=== PATIENT | male | born 1975 | race Caucasian/White ===

== ENCOUNTER 2019-12-08 13:30 | Emergency (ER) | payer BC ==
[2019-12-08] MEDS ORDERED: Sodium Chloride 0.9% 10 ML Syringe FLUSH PRN (13:43)
[2019-12-08] MEDS ORDERED: Sodium Chloride 0.9% 1,000 ML IV ONE ×3 (13:43→14:31)
--- NOTE | 2019-12-08 13:51 | EDM.PDOC ---
ED HPI GENERAL MEDICAL PROBLEM - General Chief Complaint: General Stated Complaint: shortness of breath Time Seen by Provider: 12/08/19 13:45 Source of Information: Reports: Patient History Limitations: Reports: No Limitations - History of Present Illness INITIAL COMMENTS - FREE TEXT/NARRATIVE: 43 YO WM with PMH of NIDDM, HTN and obesity who presents to ER from clinic with fever, and shortness of breath which began 4 days ago. Pt was seen in clinic on Sunday and diagnosed with a viral URI and sent home on Ibuprofen. Pt states he was doing okay until this am when he woke with worsening shortness of breath prompting another clinic visit. Upon clinic assessment, pt was found to be hypotensive (systolic BP 80's) with SaO2 88% and tachypnea prompting instructions to go to ER for evaluation. Pt reports fever as high as 103 at home. Pt denies any chest pain, or nausea/vomiting at this time. Pt reports he is feeling better with O2 nasal canula. Onset Date: 12/05/19 Duration: Day(s): (4) Location: Reports: Generalized Severity: Severe Improves with: Reports: Rest Worsens with: Reports: Breathing, Movement Associated Symptoms: Reports: Cough, Diaphoresis, Fever/Chills, Loss of Appetite , Malaise, Shortness of Breath, Weakness. Denies: Chest Pain, Nausea/Vomiting Treatments VAMP MARKER: Reports: Acetaminophen - Related Data Allergies Allergy/AdvReac Type Severity Reaction Status Date / Time No Known Drug Allergies Allergy Other Verified 12/08/19 13:37 Ulcnhua-Ycb-Lnd Reductase Allergy Other Verified 12/08/19 14:21 Inhibitor environmental Allergens Allergy Other Uncoded 12/08/19 14:20 food Allergy Other Uncoded 12/08/19 14:21 Home Meds: Home Meds Acetaminophen 1,000 mg PO Q6H PRN 12/08/19 [History] Fenofibrate 160 mg PO DAILY 12/08/19 [History] Furosemide [Lasix] 40 mg PO DAILY 12/08/19 [History] Lisinopril [Zestril] 5 mg PO DAILY 12/08/19 [History] Naproxen [Naprosyn] 500 mg PO Q12H PRN 12/08/19 [History] allopurinoL [Zyloprim] 300 mg PO DAILY 12/08/19 [History] glipiZIDE [Glucotrol] 20 mg PO ACBREAKFAST 12/08/19 [History] metFORMIN [Glucophage] 1,000 mg PO BIDMEALS 12/08/19 [History] ED ROS GENERAL - Review of Systems Review Of Systems: See Below Constitutional: Reports: Fever, Chills, Malaise, Weakness, Diaphoresis, Decreased Appetite HEENT: Reports: Rhinitis Respiratory: Reports: Shortness of Breath Cardiovascular: Reports: Dyspnea on Exertion Endocrine: Reports: No Symptoms GI/Abdominal: Reports: No Symptoms : Reports: No Symptoms Musculoskeletal: Reports: No Symptoms Skin: Reports: No Symptoms Neurological: Reports: No Symptoms Psychiatric: Reports: No Symptoms Hematologic/Lymphatic: Reports: No Symptoms Immunologic: Reports: No Symptoms ED EXAM, GENERAL - Physical Exam Exam: See Below Exam Limited By: No Limitations General Appearance: Alert, WD/WN, No Apparent Distress Eye Exam: Bilateral Eye: PERRL Ears: Normal External Exam, Normal Canal, Hearing Grossly Normal, Normal TMs Ear Exam: Bilateral Ear: Auricle Normal, Canal Normal, TM normal Nose: Normal Inspection, Normal Mucosa, No Blood Throat/Mouth: Normal Inspection, Normal Lips, Normal Teeth, Normal Gums, Normal Oropharynx, Normal Voice, No Airway Compromise Head: Atraumatic, Normocephalic Neck: Normal Inspection, Supple, Non-Tender, Full Range of Motion Respiratory/Chest: Lungs Clear, Normal Breath Sounds, Chest Non-Tender, Accessory Muscle Use Cardiovascular: Normal Peripheral Pulses, Regular Rate, Rhythm, No Edema, No Gallop, No JVD, No Murmur, No Rub, Tachycardia GI/Abdominal: Normal Bowel Sounds, Soft, Non-Tender, No Organomegaly, No Distention, No Abnormal Bruit, No Mass Back Exam: Normal Inspection, Full Range of Motion, NT Extremities: Normal Inspection, Normal Range of Motion, Non-Tender, Normal Capillary Refill, No Pedal Edema Neurological: Alert, Oriented, CN II-XII Intact, Normal Cognition, Normal Gait, Normal Reflexes, No Motor/Sensory Deficits Psychiatric: Normal Affect, Normal Mood Skin Exam: Warm, Dry, Intact, Normal Color, No Rash Lymphatic: No Adenopathy EKG INTERPRETATION EKG Date: 12/08/19 Time: 13:55 Rhythm: NSR Rate (Beats/Min): 137 Edwards: Normal P-Wave: Present QRS: Normal ST-T: Normal QT: Normal Comparison: NA - No Prior EKG Course - Vital Signs Last Recorded V/S: Last Vital Signs Temp 36.8 C 12/08/19 14:48 Pulse 140 H 12/08/19 14:48 Resp 32 H 12/08/19 14:48 BP 103/77 12/08/19 14:48 Pulse Ox 94 L 12/08/19 14:48 - Orders/Labs/Meds Orders: Active Orders 24 hr Category Date Time Status Cardiac Monitoring [RC] . DIRECTED Care 12/08/19 13:43 Active EKG Documentation Completion [RC] ASDIRECTED Care 12/08/19 13:43 Active Peripheral IV Care [RC] . DIRECTED Care 12/08/19 13:43 Active CULTURE BLOOD [BC] Stat Lab 12/08/19 13:44 Received CULTURE BLOOD [BC] Stat Lab 12/08/19 14:25 Received Piperacillin/Tazobactam [Zosyn] 4.5 gm Med 12/08/19 14:45 Active Sodium Chloride 0.9% [Normal Saline] 100 ml IV Q6H Sodium Chloride 0.9% [Normal Saline] 1,000 ml Med 12/08/19 14:31 Active IV .BOLUS Sodium Chloride 0.9% [Saline Flush] Med 12/08/19 13:43 Active 10 ml FLUSH Q8HR PRN Vancomycin 1 gm Med 12/08/19 14:43 Active Sodium Chloride 0.9% [Normal Saline] 250 ml IV ONETIME Blood Culture x2 Reflex Set [OM.PC] Stat Oth 12/08/19 13:53 Ordered Peripheral IV Insertion Adult [OM.PC] Routine Oth 12/08/19 13:43 Ordered EKG 12 Lead [EK] Routine Ther 12/08/19 13:43 Ordered Medication Orders Sodium Chloride (Normal Saline) 1,000 mls @ 999 mls/hr IV .BOLUS ONE Stop: 12/08/19 15:31 Piperacillin Sod/Tazobactam (Sod 4.5 gm/ Sodium Chloride) 100 mls @ 200 mls/hr IV Q6H ALMA ROSA Last Admin: 12/08/19 14:51 Dose: 200 mls/hr Vancomycin HCl 1 gm/ Sodium (Chloride) 250 mls @ 167 mls/hr IV ONETIME ONE Stop: 12/08/19 16:12 Sodium Chloride (Saline Flush) 10 ml FLUSH Q8HR PRN PRN Reason: keep vein open Labs: Laboratory Tests 12/08/19 12/08/19 12/08/19 Range/Units 13:44 13:44 13:44 WBC 19.64 H (5.00-10.00) 10^3/uL RBC 4.65 (4.50-6.00) 10^6/uL Hgb 14.2 (13.0-17.0) g/dL Hct 42.1 (40.0-52.0) % MCV 90.5 (82.0-92.0) fL MCH 30.5 (27.0-31.0) pg MCHC 33.7 (32.0-36.0) g/dL RDW 14.2 (11.5-14.5) % Plt Count 192 (150-400) 10^3/uL MPV 11.0 H (7.4-10.4) fL Add Manual Diff Yes Neutrophils % (Manual) 70 (50-70) % Band Neutrophils % 21 H (4-12) % Lymphocytes % (Manual) 5 L (20-40) % Monocytes % (Manual) 2 (2-8) % Eosinophils % (Manual) 1 (1-3) % Metamyelocytes % 1 Immature Gran # 0.1964 Absolute Neutrophils 17.8724 Lymphocytes # (Manual) 0.9820 Monocytes # (Manual) 0.3928 Eosinophils # (Manual) 0.1964 Sodium 134 L (136-145) mmol/L Potassium 4.5 (3.3-5.3) mmol/L Chloride 96 L (98-115) mmol/L Carbon Dioxide 19.0 L (21.0-32.0) mmol/L Anion Gap 23.5 H (5-15) mmol/L BUN 21 (6-25) mg/dL Creatinine 2.23 H (0.51-1.17) mg/dL Est Cr Clr Drug Dosing 38.15 mL/min Estimated GFR (MDRD) 32 mL/min Glucose 85 (75 - 99) mg/dL Lactic Acid 6.3 H (0.4-2.0) mmol/L Calcium 8.8 (8.7-10.3) mg/dL Total Bilirubin 1.6 H (0.2-1.0) mg/dL AST 63 H (15-37) U/L ALT 46 (12-78) U/L Alkaline Phosphatase 71 (46-116) IU/L Creatine Kinase 432 H* (26-276) U/L CK-MB (CK-2) 0.60 (0.00-4.30) ng/mL Troponin I < 0.04 (0.00-0.070) ng/mL Total Protein 7.0 (6.4-8.2) g/dL Albumin 2.86 L (3.00-4.80) g/dL Meds: Medications Generic Name Dose Route Start Last Admin Trade Name Freq PRN Reason Stop Dose Admin Sodium Chloride 1,000 mls @ 999 mls/hr 12/08/19 14:31 Normal Saline IV 12/08/19 15:31 .BOLUS ONE Piperacillin Sod/Tazobactam 100 mls @ 200 mls/hr 12/08/19 14:45 12/08/19 14: 51 Sod 4.5 gm/ Sodium Chloride IV 200 mls/hr Q6H ALMA ROSA Administration Vancomycin HCl 1 gm/ Sodium 250 mls @ 167 mls/hr 12/08/19 14:43 Chloride IV 12/08/19 16:12 ONETIME ONE Sodium Chloride 10 ml 12/08/19 13:43 Saline Flush FLUSH Q8HR PRN keep vein open Discontinued Medications Generic Name Dose Route Start Last Admin Trade Name Freq PRN Reason Stop Dose Admin Sodium Chloride 1,000 mls @ 999 mls/hr 12/08/19 13:43 12/08/19 13:50 Normal Saline IV 12/08/19 14:43 999 mls/hr .BOLUS ONE Administration Ibuprofen 800 mg 12/08/19 14:05 12/08/19 14:14 Motrin PO 12/08/19 14:06 800 mg ONETIME ONE Administration - Radiology Interpretation Free Text/Narrative:: CXR- bilateral hilar infiltrates with mild pulm edema Departure - Departure Time of Disposition: 14:58 Disposition: DC/Tfer to Acute Hospital 02 Condition: Serious Clinical Impression: Influenza A Pneumonia Qualifiers: Laterality: bilateral Lung location: upper lobe of lung Sepsis Qualifiers: Sepsis type: sepsis due to unspecified organism Sepsis acute organ dysfunction status: without acute organ dysfunction Qualified Code(s): A41.9 - Sepsis, unspecified organism - Discharge Information Referrals: PCP,Unknown [Ordering Only Provider] - Forms: ED Department Discharge, Interfacility Transfer [facility] Sepsis Event Note - Evaluation Sepsis Screening Result: Possible Sepsis Risk - Focused Exam Vital Signs: Vital Signs Temp Temp Temp Pulse Resp BP Pulse Ox 12/08/19 14:48 36.8 C 140 H 32 H 103/77 94 L 12/08/19 14:33 139 H 26 H 106/85 93 L 12/08/19 14:18 140 H 27 H 92/47 L 92 L 12/08/19 14:14 38.3 C H 12/08/19 13:52 130 H 28 H 103/38 L 91 L 12/08/19 13:40 143 H 33 H 96/46 L 90 L 12/08/19 13:30 36.9 C 144 H 26 H 101/50 L 89 L Date Exam was Performed: 12/08/19 Time Exam was Performed: 14:58 - My Orders Last 24 Hours: My Active Orders 12/08/19 13:43 Cardiac Monitoring [RC] . DIRECTED EKG Documentation Completion [RC] ASDIRECTED Peripheral IV Care [RC] . DIRECTED Sodium Chloride 0.9% [Saline Flush] 10 ml FLUSH Q8HR PRN Peripheral IV Insertion Adult [OM.PC] Routine EKG 12 Lead [EK] Routine 12/08/19 13:44 CULTURE BLOOD [BC] Stat 12/08/19 13:53 Blood Culture x2 Reflex Set [OM.PC] Stat 12/08/19 14:25 CULTURE BLOOD [BC] Stat 12/08/19 14:31 Sodium Chloride 0.9% [Normal Saline] 1,000 ml IV .BOLUS 12/08/19 14:43 Vancomycin 1 gm Sodium Chloride 0.9% [Normal Saline] 250 ml IV ONETIME 12/08/19 14:45 Piperacillin/Tazobactam [Zosyn] 4.5 gm Sodium Chloride 0.9% [Normal Saline] 100 ml IV Q6H - Assessment/Plan Last 24 Hours: My Active Orders 12/08/19 13:43 Cardiac Monitoring [RC] . DIRECTED EKG Documentation Completion [RC] ASDIRECTED Peripheral IV Care [RC] . DIRECTED Sodium Chloride 0.9% [Saline Flush] 10 ml FLUSH Q8HR PRN Peripheral IV Insertion Adult [OM.PC] Routine EKG 12 Lead [EK] Routine 12/08/19 13:44 CULTURE BLOOD [BC] Stat 12/08/19 13:53 Blood Culture x2 Reflex Set [OM.PC] Stat 12/08/19 14:25 CULTURE BLOOD [BC] Stat 12/08/19 14:31 Sodium Chloride 0.9% [Normal Saline] 1,000 ml IV .BOLUS 12/08/19 14:43 Vancomycin 1 gm Sodium Chloride 0.9% [Normal Saline] 250 ml IV ONETIME 12/08/19 14:45 Piperacillin/Tazobactam [Zosyn] 4.5 gm Sodium Chloride 0.9% [Normal Saline] 100 ml IV Q6H Assessment:: 1. Influenza A 2. Sepsis secondary to influenza A 3. bilateral hilar infiltrates suspect pneumonia Plan: 1. Transfer to [facility]- 2. Zosyn 4.5g IV now 3. NS boluses at 30ml/kg 4. blood culture drawn x 2 5. supplemental O2 at 2L and titrate as needed
[2019-12-08] MEDS ORDERED: Ibuprofen 400 MG Tab PO ONE (14:05)
[2019-12-08 14:22] LABS: ANION GAP 23.5 mmol/L (5-15); CHLORIDE,CL 96 mmol/L (98-115); SODIUM,NA 134 mmol/L (136-145)
--- NOTE | 2019-12-08 14:23 | CR ---
[id number] RAD/RAD Chest PA And Lateral EXAM: RAD Chest PA And Lateral CLINICAL DATA: CHEST PAIN COMPARISON: No previous similar exam is available. FINDINGS: There is abnormal hilar fullness There appears to mild edema The cardiac silhouette is enlarged There is scoliosis IMPRESSION: ABNORMAL EXAM CONSIDER CT CHEST AT SOME TIME HILAR FULLNESS, EITHER ADENOPATHY OR PULMONARY HYPERTENSION APPEARANCE OF MILD EDEMA Juaquin Mead MD 12/08/19 [id number] Thank you for allowing us to participate in the care of your patient.
[2019-12-08] MEDS ORDERED: Piperacillin/Tazobactam 4.5 GM in Sodium Chloride 0.9% 100 ML IV SCH (14:45)
== END 2019-12-08 15:35 ==
LOC: KA.ED 13:30
DX: A41.9 Sepsis, unspecified organism (principal); J10.00 Influenza due to other identified influenza virus with unspecified type of pneumonia; E11.9 Type 2 diabetes mellitus without complications; I10 Essential (primary) hypertension; E66.9 Obesity, unspecified; Z79.84 Long term (current) use of oral hypoglycemic drugs; Z91.018 Allergy to other foods; Z79.899 Other long term (current) drug therapy; Z68.43 Body mass index [BMI] 50.0-59.9, adult
CPT/HCPCS: 71046; 80053; 82550; 82553; 83605; 84484; 85025; 87040; 87804; 93005; 96361; 96365; 96368; 99285-25; A9270-GY; J2543; J3370; J7030; J7050

== ENCOUNTER 2020-09-01 06:50 | Day surgery (SDC) | payer BC ==
[2020-09-01] MEDS ORDERED: Propofol 200 MG/20 ML SDV IV ONE (06:51)
[2020-09-01] MEDS ORDERED: Midazolam 1 MG/ML 2 ML SDV IV ONE (06:51)
[2020-09-01] MEDS ORDERED: ceFAZolin 1 GM Vial IV ONE (06:51)
[2020-09-01] MEDS ORDERED: Sodium Chloride 0.9% 1,000 ML IV SCH (07:00)
[2020-09-01] MEDS ORDERED: Sodium Chloride 0.9% 10 ML Syringe FLUSH PRN (07:00)
[2020-09-01] MEDS ORDERED: ceFAZolin 1 GM Vial ONE (07:53)
[2020-09-01] MEDS ORDERED: Midazolam 1 MG/ML 2 ML SDV ONE (07:53)
[2020-09-01] MEDS ORDERED: Lidocaine 0.5% 50 ML SDV ONE (07:54)
[2020-09-01] MEDS ORDERED: Propofol 200 MG/20 ML SDV ONE ×3 (07:54→09:12)
[2020-09-01] MEDS ORDERED: Bupivacaine 0.5% 30 ML SDV ONE (08:15)
[2020-09-01] MEDS ORDERED: Bupivacaine 0.5% 30 ML SDV INFILT ONE (09:30)
--- NOTE | 2020-09-01 09:31 | PCM.OPNOTE ---
- General Post-Op/Procedure Note Date of Surgery/Procedure: 09/01/20 Operative Procedure(s): Left carpal tunnel release. Anesthesia Technique: Regional Block Primary Surgeon: Belkis Sullivan Complications: None Condition: Good Free Text/Narrative:: INFORMED CONSENT: Patient is here today for elective left carpal tunnel release. All aspects of this procedure have been discussed with the patient. All possible complications also, including possibility of infection, pain, bleeding, nerve injury, failure of the procedure to the desired results and unknown complications. Anesthetic complications were handled by anesthesia department. The patient understands fully well. Patient did not have any further questions for me at the end of my interview. The patient wishes for me to proceed. PROCEDURE: Patient was kept in the supine position and the satisfactory [place] block anesthesia was administered. The left arm was thoroughly prepped and draped in the usual fashion. The tourniquet was placed to the left upper arm and a vertical incision was made in the palm directly distal to the distal wrist crease. The skin incision was deepened through the subcutaneous tissue, the palmar aponeurosis was incised and then we came down upon the transverse carpal ligament, which was opened along the line of the skin incision. Extreme care was taken to protect the median nerve below. Careful neurolysis was performed meticulously. Approximately 2 cc of Marcaine 0.5% was instilled into the wound and skin was closed using mattress sutures with 3.0 Nylon. The tourniquet was released. A sterile pressure dressing was applied. The patient tolerated the procedure well and was transferred to the recovery room in excellent condition.
== END 2020-09-01 11:00 | disposition home or self-care (01) ==
LOC: KA.SDS 06:50
PROVIDERS: ATTEND Family Medicine
DX: G56.02 Carpal tunnel syndrome, left upper limb (principal); I10 Essential (primary) hypertension; E66.01 Morbid (severe) obesity due to excess calories; E11.649 Type 2 diabetes mellitus with hypoglycemia without coma; E11.42 Type 2 diabetes mellitus with diabetic polyneuropathy; Z87.891 Personal history of nicotine dependence; Z68.43 Body mass index [BMI] 50.0-59.9, adult; Z79.84 Long term (current) use of oral hypoglycemic drugs; Z79.899 Other long term (current) drug therapy; Z88.8 Allergy status to other drugs, medicaments and biological substances; Z91.018 Allergy to other foods; Z98.890 Other specified postprocedural states
CPT/HCPCS: 01810; 82962; J0690; J2250; J2704; J3490; J7030

== ENCOUNTER 2020-10-06 06:51 | Day surgery (SDC) | payer BC ==
[2020-10-06] MEDS ORDERED: Sodium Chloride 0.9% 10 ML Syringe FLUSH PRN (07:00)
[2020-10-06] MEDS ORDERED: Sodium Chloride 0.9% 1,000 ML IV SCH (07:00)
[2020-10-06] MEDS ORDERED: Midazolam 1 MG/ML 2 ML SDV IV ONE (08:20)
[2020-10-06] MEDS ORDERED: ceFAZolin 1 GM Vial IV ONE (08:20)
[2020-10-06] MEDS ORDERED: Lidocaine 0.5% 50 ML SDV INJECT ONE (08:20)
[2020-10-06] MEDS ORDERED: Propofol 200 MG/20 ML SDV IV ONE (08:20)
[2020-10-06] MEDS ORDERED: Midazolam 1 MG/ML 2 ML SDV ONE (08:22)
[2020-10-06] MEDS ORDERED: Bupivacaine 0.5% 10 ML SDV INFILT ONE ×2 (08:46)
--- NOTE | 2020-10-06 11:46 | PCM.OPNOTE ---
- General Post-Op/Procedure Note Date of Surgery/Procedure: 10/06/20 Operative Procedure(s): Right carpal tunnel decompression. Findings: Patient had a positive nerve conduction studies indicate above right carpal tunnel syndrome. He had his left side done recently. Pre Op Diagnosis: Right carpal tunnel syndrome. Anesthesia Technique: Regional Block Primary Surgeon: Belkis Sullivan Condition: Good Free Text/Narrative:: INFORMED CONSENT: Patient is here today for elective carpal tunnel repair on the right side.. All aspects of this procedure have been discussed with the patient. All possible complications also, including infection, pain, bleeding and unknown complications. Anesthetic complications were handled by anesthesia department. The patient understands fully well. Patient did not have any further questions for me at the end of my interview. The patient wishes for me to proceed. PROCEDURE: Patient was kept in the supine position and the satisfactory [place] block anesthesia was administered. The rt arm was thoroughly prepped and draped in the usual fashion. The tourniquet was placed to the RT upper arm and a vertical incision was made in the palm directly distal to the distal wrist crease. The skin incision was deepened through the subcutaneous tissue, the palmar aponeurosis was incised and then we came down upon the transverse carpal ligament, which was opened along the line of the skin incision. Extreme care was taken to protect the median nerve below. Careful neurolysis was performed meticulously. Approximately 2 cc of Marcaine 0.5% was instilled into the wound and skin was closed using mattress sutures with 3.0 Nylon. The tourniquet was released. A sterile pressure dressing was applied. The patient tolerated the procedure well and was transferred to the recovery room in excellent condition.
== END 2020-10-06 10:45 | disposition home or self-care (01) ==
LOC: KA.SDS 06:51
PROVIDERS: ATTEND Family Medicine
DX: G56.01 Carpal tunnel syndrome, right upper limb (principal); I10 Essential (primary) hypertension; E66.01 Morbid (severe) obesity due to excess calories; E11.649 Type 2 diabetes mellitus with hypoglycemia without coma; E11.42 Type 2 diabetes mellitus with diabetic polyneuropathy; E78.5 Hyperlipidemia, unspecified; Z86.718 Personal history of other venous thrombosis and embolism; Z79.84 Long term (current) use of oral hypoglycemic drugs; Z79.899 Other long term (current) drug therapy; Z88.8 Allergy status to other drugs, medicaments and biological substances; Z91.018 Allergy to other foods; Z98.890 Other specified postprocedural states; Z87.891 Personal history of nicotine dependence; Z68.43 Body mass index [BMI] 50.0-59.9, adult
CPT/HCPCS: 01810; 82962; J0690; J2001; J2250; J2704; J3490; J7030

== ENCOUNTER 2023-08-03 20:05 | Inpatient (IN) | payer BC ==
[2023-08-03] MEDS ORDERED: Sodium Chloride 0.9% 10 ML Syringe FLUSH PRN (20:23)
[2023-08-03] MEDS ORDERED: Sodium Chloride 0.9% 1,000 ML IV ONE (20:23)
[2023-08-03] MEDS ORDERED: Acetaminophen 500 MG Tab PO ONE (20:54)
[2023-08-03 21:03] LABS: BASOPHILS ABSOLUTE AUTO 0.07 10^3/uL (0.00-0.10); BASOPHILS PERCENT AUTO 0.7 % (0.0-1.0); EOSINOPHILS ABSOLUTE AUTO 0.08 10^3/uL (0.10-0.30); EOSINOPHILS PERCENT AUTO 0.8 % (1.0-3.0); HEMOGLOBIN 15.4 g/dL (13.0-17.0); IMMATURE GRAN ABSOLUTE AUTO 0.07 10^3/uL (0.00-0.50); IMMATURE GRAN PERCENT AUTO 0.7 % (0.0-5.0); LYMPHOCYTES ABSOLUTE AUTO 1.44 10^3/uL (1.00-4.00); LYMPHOCYTES PERCENT AUTO 14.2 % (20.0-40.0); MEAN CORPUSCULAR HEMOGLOBIN 31.1 pg (27.0-31.0); MEAN CORPUSCULAR HGB CONC 34.2 g/dL (32.0-36.0); MEAN CORPUSCULAR VOLUME 90.9 fL (82.0-92.0); MONOCYTES ABSOLUTE AUTO 0.91 10^3/uL (0.10-0.80); NEUTROPHILS ABSOLUTE AUTO 7.57 10^3/uL (2.50-7.00); NEUTROPHILS PERCENT AUTO 74.6 % (50.0-70.0); PLATELET COUNT,PLT 206 10^3/uL (150-400); RED BLOOD CELL COUNT 4.95 10^6/uL (4.50-6.00); RED CELL DISTRIBUTION WIDTH 13.3 % (11.5-14.5); WHITE BLOOD CELL COUNT,WBC 10.14 10^3/uL (5.00-10.00)
[2023-08-03 21:22] LABS: LACTIC ACID 1.4 mmol/L (0.4-2.0)
[2023-08-03 21:25] LABS: ALBUMIN 3.77 g/dL (3.40-5.00); ANION GAP 16.2 mmol/L (5-15); BILIRUBIN TOTAL 0.9 mg/dL (0.2-1.0); C-REACTIVE PROTEIN 10.6 mg/dL (0.0-0.9); CALCIUM 8.5 mg/dL (8.7-10.3); CARBON DIOXIDE,CO2 22.6 mmol/L (21.0-32.0); CREATININE 1.36 mg/dL (0.51-1.17); POTASSIUM,K 3.8 mmol/L (3.5-5.1); PROTEIN TOTAL,TP 7.6 g/dL (6.4-8.2)
[2023-08-03 21:27] LABS: EST CRCL DRUG DOSING (CG) 59.94 mL/min
[2023-08-03 21:42] LABS: INFLUENZA A NAA NEGATIVE (NEGATIVE); INFLUENZA B NAA NEGATIVE (NEGATIVE)
[2023-08-03 21:45] LABS: CORONAVIRUS COVID-19 NAA POSITIVE (NEGATIVE)
[2023-08-03] MEDS ORDERED: Dexamethasone 4 MG/ML SDV IVPUSH ONE (21:49)
[2023-08-03 21:50] LABS: APPEARANCE,URINE SLIGHTLY CLOUDY (CLEAR); BACTERIA,URINE OCCASIONAL /HPF (NONE TO FEW); BILIRUBIN,URINE NEGATIVE (NEGATIVE); COLOR,URINE YELLOW (YELLOW); EPITHELIAL CELLS,URINE FEW /LPF; GLUCOSE,URINE >=1000 mg/dL (NEGATIVE); KETONES,URINE NEGATIVE (NEGATIVE); LEUKOCYTE ESTERASE,URINE TRACE (NEGATIVE); NITRITE,URINE NEGATIVE (NEGATIVE); OCCULT BLOOD,URINE LARGE (NEGATIVE); PH,URINE 5.5 (5.0-9.0); PROTEIN,URINE NEGATIVE (NEGATIVE)
[2023-08-03] MEDS ORDERED: Iopamidol 755 Mg/ML 100 ML Bottle IV ONE (22:37)
[2023-08-03] MEDS ORDERED: Sodium Chloride 0.9% 1,000 ML ONE (22:38)
[2023-08-03] MEDS ORDERED: Sodium Chloride 0.9% 100 ML IV SCH (22:45)
[2023-08-03] MEDS ORDERED: Sodium Chloride 0.9% 1,000 ML IV SCH (22:45)
[2023-08-03] MEDS ORDERED: REMDESIVIR 200 MG in Sodium Chloride 0.9% 100 ML IV ONE (23:11)
[2023-08-04] MEDS ORDERED: Ondansetron 4 MG/2 ML SDV IV PRN (00:31)
[2023-08-04] MEDS ORDERED: Albuterol/Ipratropium 3.0-0.5 MG/3 ML Neb Soln NEB PRN (00:31)
[2023-08-04] MEDS ORDERED: Azithromycin 500 MG in Sodium Chloride 0.9% 250 ML IV ONE (00:51)
[2023-08-04] MEDS ORDERED: cefTRIAXone 2 GM Vial IVPUSH SCH ×2 (01:00→22:00)
[2023-08-04] MEDS ORDERED: Heparin Sodium 5,000 Units/ML Vial SUBCUT SCH (01:00)
[2023-08-04] MEDS: Enoxaparin 40 MG/0.4 ML Syringe SUBCUT SCH ×2 (01:18→19:59)
[2023-08-04 01:24] LABS: ALBUMIN 3.81 g/dL (3.40-5.00); BILIRUBIN DIRECT 0.3 mg/dL (0.0-0.2); BILIRUBIN INDIRECT 0.6 mg/dL; BILIRUBIN TOTAL 0.9 mg/dL (0.2-1.0); PROTEIN TOTAL,TP 7.6 g/dL (6.4-8.2)
[2023-08-04] MEDS ORDERED: 50% Dextrose in Water 50 ML Syringe IVPUSH PRN (01:34)
[2023-08-04] MEDS ORDERED: Glucagon,Human Recombinant 1 MG Vial IM PRN (01:34)
[2023-08-04] MEDS ORDERED: Sodium Chloride 0.9% 100 ML IV SCH (01:45)
[2023-08-04 07:11] LABS: BASOPHILS ABSOLUTE AUTO 0.04 10^3/uL (0.00-0.10); BASOPHILS PERCENT AUTO 0.5 % (0.0-1.0); HEMATOCRIT 42.1 % (40.0-52.0); HEMOGLOBIN 14.2 g/dL (13.0-17.0); IMMATURE GRAN ABSOLUTE AUTO 0.03 10^3/uL (0.00-0.50); IMMATURE GRAN PERCENT AUTO 0.3 % (0.0-5.0); LYMPHOCYTES ABSOLUTE AUTO 0.64 10^3/uL (1.00-4.00); LYMPHOCYTES PERCENT AUTO 7.3 % (20.0-40.0); MEAN CORPUSCULAR HEMOGLOBIN 30.9 pg (27.0-31.0); MEAN CORPUSCULAR HGB CONC 33.7 g/dL (32.0-36.0); MEAN CORPUSCULAR VOLUME 91.5 fL (82.0-92.0); MEAN PLATELET VOLUME 10.8 fL (7.4-10.4); MONOCYTES ABSOLUTE AUTO 0.31 10^3/uL (0.10-0.80); MONOCYTES PERCENT AUTO 3.6 % (2.0-8.0); NEUTROPHILS PERCENT AUTO 88.3 % (50.0-70.0); PLATELET COUNT,PLT 183 10^3/uL (150-400); WHITE BLOOD CELL COUNT,WBC 8.72 10^3/uL (5.00-10.00)
[2023-08-04 07:29] LABS: ALBUMIN 3.16 g/dL (3.40-5.00); ANION GAP 18.5 mmol/L (5-15); BILIRUBIN TOTAL 0.5 mg/dL (0.2-1.0); CALCIUM 8.4 mg/dL (8.7-10.3); CREATININE 1.15 mg/dL (0.51-1.17); EST CRCL DRUG DOSING (CG) 70.89 mL/min; POTASSIUM,K 4.5 mmol/L (3.5-5.1); PROTEIN TOTAL,TP 6.8 g/dL (6.4-8.2)
[2023-08-04] MEDS: Dexamethasone 4 MG Tab PO SCH (08:06)
[2023-08-04] MEDS: Allopurinol 100 MG Tab PO SCH (08:07)
[2023-08-04] MEDS: Sertraline 50 MG Tab PO SCH (08:08)
[2023-08-04] MEDS: Aspirin 81 MG Tab.EC PO SCH (08:08)
[2023-08-04] MEDS: Metoprolol Succinate 50 MG Tab.ER PO SCH (08:09)
[2023-08-04] MEDS: Insulin Lispro 100 Unit/ML 3 ML KwikPen SUBCUT SCH ×3 (08:35→18:07)
[2023-08-04] MEDS ORDERED: Acetaminophen 325 MG Tab PO PRN (11:28)
[2023-08-04] MEDS ORDERED: Furosemide 40 MG/4 ML VIAL IVPUSH ONE (11:29)
[2023-08-04] MEDS: guaiFENesin/Dextromethorphan 100-10 MG/5 ML Soln 5 ML Cup PO PRN ×2 (12:00→20:59)
[2023-08-04] MEDS ORDERED: Insulin Lispro 100 Unit/ML 3 ML KwikPen SUBCUT ONE (20:41)
[2023-08-04] MEDS ORDERED: REMDESIVIR 100 MG in Sodium Chloride 0.9% 100 ML IV SCH (21:00)
[2023-08-04] MEDS ORDERED: Azithromycin 250 MG in Sodium Chloride 0.9% 250 ML IV SCH (22:00)
[2023-08-05] MEDS ORDERED: Azithromycin 250 MG in Sodium Chloride 0.9% 250 ML IV SCH (01:00)
[2023-08-05 07:12] LABS: BASOPHILS ABSOLUTE AUTO 0.04 10^3/uL (0.00-0.10); BASOPHILS PERCENT AUTO 0.5 % (0.0-1.0); EOSINOPHILS ABSOLUTE AUTO 0.12 10^3/uL (0.10-0.30); EOSINOPHILS PERCENT AUTO 1.4 % (1.0-3.0); HEMOGLOBIN 13.6 g/dL (13.0-17.0); IMMATURE GRAN PERCENT AUTO 1.2 % (0.0-5.0); LYMPHOCYTES PERCENT AUTO 17.7 % (20.0-40.0); MEAN CORPUSCULAR HEMOGLOBIN 31.1 pg (27.0-31.0); MEAN CORPUSCULAR VOLUME 91.3 fL (82.0-92.0); MEAN PLATELET VOLUME 10.8 fL (7.4-10.4); MONOCYTES ABSOLUTE AUTO 0.55 10^3/uL (0.10-0.80); MONOCYTES PERCENT AUTO 6.5 % (2.0-8.0); NEUTROPHILS ABSOLUTE AUTO 6.17 10^3/uL (2.50-7.00); NEUTROPHILS PERCENT AUTO 72.7 % (50.0-70.0); PLATELET COUNT,PLT 196 10^3/uL (150-400); RED BLOOD CELL COUNT 4.38 10^6/uL (4.50-6.00); RED CELL DISTRIBUTION WIDTH 13.1 % (11.5-14.5); WHITE BLOOD CELL COUNT,WBC 8.48 10^3/uL (5.00-10.00)
[2023-08-05] MEDS ORDERED: Insulin Glargine,Hum.Rec.Anlog 100 UNIT/ML 3 ML Pen SUBCUT SCH ×2 (08:00→09:00)
[2023-08-05] MEDS: Allopurinol 100 MG Tab PO SCH (08:04)
[2023-08-05] MEDS: Sertraline 50 MG Tab PO SCH (08:05)
[2023-08-05] MEDS: Aspirin 81 MG Tab.EC PO SCH (08:06)
[2023-08-05] MEDS: Dexamethasone 4 MG Tab PO SCH (08:06)
[2023-08-05] MEDS: Insulin Lispro 100 Unit/ML 3 ML KwikPen SUBCUT SCH ×2 (08:08→12:17)
[2023-08-05] MEDS: guaiFENesin/Dextromethorphan 100-10 MG/5 ML Soln 5 ML Cup PO PRN (09:38)
[2023-08-05] MEDS: Metoprolol Succinate 50 MG Tab.ER PO SCH (11:15)
[2023-08-05] MEDS ORDERED: Levofloxacin 500 MG Tab PO ONE (11:49)
== END 2023-08-05 13:22 | disposition home or self-care (01) | DRG 137 ==
LOC: KA.ED 20:05 → KA.MS 23:16 → UNDOADMIN 23:20 → KA.MS 23:20 → UNDODISIN 08-05 13:22
PROVIDERS: ADMIT Physician Assistant Medical; ATTEND Internal Medicine
PROC: XW033E5 Introduction of Remdesivir Anti-infective into Peripheral Vein, Percutaneous Approach, New Technology Group 5 (ICD-10-PCS; principal; 2023-08-03)
PROC: 3E0333Z Introduction of Anti-inflammatory into Peripheral Vein, Percutaneous Approach (ICD-10-PCS; 2023-08-03)
PROC: 3E03329 Introduction of Other Anti-infective into Peripheral Vein, Percutaneous Approach (ICD-10-PCS; 2023-08-03)
DX: U07.1 COVID-19 (principal); J12.82 Pneumonia due to coronavirus disease 2019; J96.01 Acute respiratory failure with hypoxia; J69.0 Pneumonitis due to inhalation of food and vomit; N17.9 Acute kidney failure, unspecified; E87.1 Hypo-osmolality and hyponatremia; E11.9 Type 2 diabetes mellitus without complications; I10 Essential (primary) hypertension; E78.00 Pure hypercholesterolemia, unspecified; M10.9 Gout, unspecified; F32.A Depression, unspecified; G47.30 Sleep apnea, unspecified; M19.90 Unspecified osteoarthritis, unspecified site; E66.01 Morbid (severe) obesity due to excess calories; Z68.43 Body mass index [BMI] 50.0-59.9, adult; Z91.018 Allergy to other foods; Z88.8 Allergy status to other drugs, medicaments and biological substances; Z79.899 Other long term (current) drug therapy; Z79.84 Long term (current) use of oral hypoglycemic drugs; Z79.82 Long term (current) use of aspirin; Z86.718 Personal history of other venous thrombosis and embolism; Z90.89 Acquired absence of other organs; Z98.890 Other specified postprocedural states; Z87.11 Personal history of peptic ulcer disease
CPT/HCPCS: 0240U; 36415; 71045; 71275; 80053; 80076; 81001; 82947; 83605; 85025; 86140; 87040; 87070; 87205; 93005; 96361; 96374; 99285-25; A9270-GY; J0248; J0456; J0696; J1100; J1650; J1815-GY; J1940; J3490; J7030; J7050; J8540; Q3014; Q9967

== ENCOUNTER 2023-10-01 08:43 | Emergency (ER) | payer OTHER, BC | END 2023-10-01 09:57 | disposition home or self-care (01) | LOC: KA.ED 08:43 | DX: M50.30 Other cervical disc degeneration, unspecified cervical region (principal); I10 Essential (primary) hypertension; M19.90 Unspecified osteoarthritis, unspecified site; E11.9 Type 2 diabetes mellitus without complications; E87.1 Hypo-osmolality and hyponatremia; E87.6 Hypokalemia; Z79.84 Long term (current) use of oral hypoglycemic drugs; Z79.82 Long term (current) use of aspirin; Z79.899 Other long term (current) drug therapy; Z88.8 Allergy status to other drugs, medicaments and biological substances; Z91.018 Allergy to other foods; Z91.048 Other nonmedicinal substance allergy status | CPT/HCPCS: 71046; 72125; 99284 ==